=== PATIENT | male | born 1990 | race American Indian/Alaskan Native ===

== ENCOUNTER 2019-10-10 07:03 | Emergency (ER) | payer OTHER ==
[2019-10-10 07:21] VITALS: BP 128/74
--- NOTE | 2019-10-10 07:39 | Emergency Department Report ---
Minor Respiratory - HPI Chief Complaint: Upper Respiratory Infection Stated Complaint: GOUT SYMPTOMS Time Seen by Provider: 10/10/19 07:23 Duration: Today Minor Respiratory: Yes Sore Throat, Yes Cough (Nonproductive), Yes Sick Contacts (Works at [employer] long-term), No Hemoptysis, No Chest Pain, No Shortness of Breath, No Fever Other History: 28-year-old -Citizen Of [place] male presents to the emergency room stating he is here because he thinks he has possible COVID 19. Patient complains of headache sore throat chills and nonproductive cough that started yesterday. Patient denies any fever. Patient states that he works at [employer] and several coworkers are waiting for their test results. Patient reports he has a past medical history of ulcerative colitis and has currently started back on meds as he started to flareup last week. Patient states he does not have a primary care provider but is a member of [employer]. Patient reports that he is allergic to shellfish and contrast. ED Review of Systems ROS: Stated complaint: GOUT SYMPTOMS Other details as noted in HPI ED Past Medical Hx - Past Medical History Previous Medical History?: Yes Additional medical history: ulcerative colitis - Surgical History Past Surgical History?: No - Social History Smoking Status: Never Smoker Substance Use Type: None Minor Respiratory Exam - Exam General: Vital signs noted. No distress. Alert and acting appropriately. Neurologic: Alert and oriented, no deficits. Musculoskeletal: Unremarkable. ED Course Vital Signs 10/10/19 07:16 Temperature 97.9 F Pulse Rate 68 Respiratory 18 Rate Blood Pressure 128/74 O2 Sat by Pulse 100 Oximetry Critical care attestation.: If time is entered above; I have spent that time in minutes in the direct care of this critically ill patient, excluding procedure time. ED Disposition Condition: Stable
== END 2019-10-10 07:47 | disposition left against medical advice (07) ==
LOC: ED 07:03
DX: R05 Cough (principal); J02.9 Acute pharyngitis, unspecified; R51 Headache; Z53.21 Procedure and treatment not carried out due to patient leaving prior to being seen by health care provider